=== PATIENT | female | born 1940 | race Caucasian/White ===

== ENCOUNTER 2023-11-29 14:37 | Emergency (ER) | payer MEDICARE ==
[~2023-11-29] VITALS: Ht 172.7 cm; Wt 70.0 kg
[~2023-11-29 14:37] MED LIST: ASPI81TA52 PO; CLIN150C2 PO; ENOX100S3 SQ; WARF-113 PO
[2023-11-29] MEDS: methylPREDNISolone sod succ 125mg/2ml vial IM ONE (16:28)
[2023-11-29 16:32] LABS: BILIRUBIN,URINE NEGATIVE (Neg); CLARITY,URINE CLEAR (Clear); COLOR,URINE YELLOW (Yellow); GLUCOSE, URINE NEGATIVE (Neg); KETONES,URINE NEGATIVE (Neg); LEUKOCYTE ESTERASE ,URINE NEGATIVE (Neg); NITRITES, URINE NEGATIVE (Neg); OCCULT BLOOD,URINE MODERATE (Neg); PROTEIN,URINE NEGATIVE (Neg); UROBILINOGEN,URINE 0.2 E.U/dL (0.2-1.0)
[2023-11-29 16:35] LABS: UA COLLECTION TYPE CLN CATCH MIDSTREAM
[2023-11-29 16:37] LABS: BACTERIA,URINE NONE SEEN /HPF (Neg); MUCUS STRANDS NONE SEEN /LPF (Neg); RBC,URINE 0-2 /HPF (0-2); SQUAMOUS EPITHELIAL CELL,UR FEW /LPF (FEW); WBC,URINE 0-4 /HPF (0-4)
[2023-11-29] MEDS ORDERED: HYDR-3965 PO (17:19)
[2023-11-29] MEDS ORDERED: PRED20TA PO (17:19)
[2023-11-29 17:44] VITALS: BP 162/85; PULSE 82; RESP 15; TEMP 98; O2SAT 99
== END 2023-11-29 17:48 | disposition home or self-care (01) ==
LOC: ER 14:37
DX: M54.50 Low back pain, unspecified (principal); R31.9 Hematuria, unspecified; Z88.8 Allergy status to other drugs, medicaments and biological substances
CPT/HCPCS: 72100; 81001; 96372; 99284; J2930